=== PATIENT | male | born 1940 | race Caucasian/White ===

== ENCOUNTER 2016-10-18 07:35 | Day surgery (SDC) | payer OTHER, MEDICARE ==
[~2016-10-18] VITALS: Ht 170.2 cm; Wt 59.0 kg
[~2016-10-18 07:35] MED LIST: AMARYL1 MG PO; ATORVASTATIN CA80 MG PO; CARVEDILOL3.125 MG PO; CARVEDILOL6.25 MG PO; CINNAMON BARK500 MG PO; GLUCOPHAGE850 MG PO; HEARTBURN TREAT15 MG PO; LANSOPRAZOLE30 MG PO; LISINOPRIL2.5 MG PO; LISINOPRIL20 MG PO; LO-DOSE ASPIRIN81 M2 PO; METFORMIN HCL500 MG PO
[2016-10-18 08:55] LABS: POINT-OF-CARE METER ID UU13113696
== END 2016-10-18 16:05 | disposition home or self-care (01) ==
LOC: CATH 07:35
PROVIDERS: Internal Medicine Cardiovascular Disease
DX: R94.39 Abnormal result of other cardiovascular function study (principal); I25.10 Atherosclerotic heart disease of native coronary artery without angina pectoris; R55 Syncope and collapse; I10 Essential (primary) hypertension; E78.5 Hyperlipidemia, unspecified; E11.9 Type 2 diabetes mellitus without complications; K21.9 Gastro-esophageal reflux disease without esophagitis; I77.819 Aortic ectasia, unspecified site; F17.210 Nicotine dependence, cigarettes, uncomplicated; Z82.49 Family history of ischemic heart disease and other diseases of the circulatory system; Z85.528 Personal history of other malignant neoplasm of kidney; Z79.84 Long term (current) use of oral hypoglycemic drugs; Z79.82 Long term (current) use of aspirin; Z88.0 Allergy status to penicillin
CPT/HCPCS: 82948; 85347; 93005; C1769; C1887; J1644; J2250; J3010

== ENCOUNTER 2017-12-13 11:19 | Inpatient (IN) | payer OTHER, MEDICARE ==
[~2017-12-13] VITALS: Ht 170.2 cm; Wt 41.4 kg
[2017-12-13 12:54] LABS: HEMATOCRIT 46.8 % (38.0-50.0); HEMOGLOBIN 16.6 G/DL (12.5-16.6); MCH 31.4 PG (29.0-34.0); MCHC 35.5 G/DL (30.0-36.0); MCV 88.6 FL (86-99); PLATELET COUNT 204 K/uL (156-360); RBC DIS.WIDTH-CV 13.8 % (11.8-14.6); RBC DIS.WIDTH-SD 44.9 % (39-53); RED BLOOD COUNT 5.28 M/uL (4.00-5.50); WHITE BLOOD COUNT 13.3 K/uL (4.1-10.2)
[2017-12-13 13:08] LABS: CHLORIDE 96 mEq/L (99-109); POTASSIUM 4.6 mEq/L (3.7-5.4); SODIUM 134 mEq/L (136-147)
[2017-12-13 13:09] LABS: GLUCOSE 153 mg/dL (70-99)
[2017-12-13 13:13] LABS: CREATININE 0.9 mg/dL (0.6-1.3); GFR ESTIMATE (CALCULATED) > 59 mL/min/ (58.99-99999)
[2017-12-13 13:14] LABS: UREA NITROGEN (BUN) 19 mg/dL (9-23)
[2017-12-13 13:28] LABS: PTT 25.3 SEC (25-37)
[2017-12-13 13:47] LABS: PTT 25.8 SEC (25-37)
[2017-12-13] MEDS ORDERED: CARVEDILOL12.5 MG PO (15:25)
[2017-12-13] MEDS ORDERED: VENTOLIN HFA18 GM IH (15:32)
[2017-12-13] MEDS ORDERED: ANORO ELLIPTA1 EACH IH (15:32)
[2017-12-13] MEDS ORDERED: METFORMIN HCL1000 MG PO (15:33)
[2017-12-13] MEDS ORDERED: TYLENOL REGULA325 MG PO (15:33)
[2017-12-13] MEDS ORDERED: HYDROCHLOROTH12.5 M3 PO (15:35)
[2017-12-13] MEDS ORDERED: MELOXICAM7.5 MG PO (15:36)
[2017-12-13] MEDS ORDERED: CHANTIX1 MG PO (15:36)
[2017-12-13] MEDS ORDERED: PREVACID15 MG PO (15:36)
[2017-12-13] MEDS ORDERED: MEN'S MULTI-VI1 EACH PO (15:37)
[2017-12-13] MEDS ORDERED: FISH OIL 1,0001 EAC7 PO (15:38)
[2017-12-13 22:44] VITALS: BP 133/61
[2017-12-14 03:11] LABS: HEMATOCRIT 42.5 % (38.0-50.0); HEMOGLOBIN 15.1 G/DL (12.5-16.6); MCH 31.7 PG (29.0-34.0); MCHC 35.5 G/DL (30.0-36.0); MCV 89.1 FL (86-99); PLATELET COUNT 157 K/uL (156-360); RBC DIS.WIDTH-CV 13.8 % (11.8-14.6); RED BLOOD COUNT 4.77 M/uL (4.00-5.50)
[2017-12-14 03:27] LABS: CHLORIDE 100 mEq/L (99-109); SODIUM 137 mEq/L (136-147)
[2017-12-14 03:28] LABS: GLUCOSE 120 mg/dL (70-99)
[2017-12-14 03:32] LABS: CREATININE 0.8 mg/dL (0.6-1.3); GFR ESTIMATE (CALCULATED) > 59 mL/min/ (58.99-99999)
[2017-12-14 03:55] LABS: UREA NITROGEN (BUN) 28 mg/dL (9-23)
[2017-12-14 04:05] VITALS: BP 121/62
[2017-12-14 07:10] VITALS: BP 158/85
[2017-12-14 10:00] LABS: HEMOGLOBIN A1c (GLYCOHEMOGLOB) 6.9 % (Below 5.7)
[2017-12-14 11:49] VITALS: BP 140/67
[2017-12-14 15:16] VITALS: BP 134/81
[2017-12-14 19:39] VITALS: BP 122/66
[2017-12-14 23:32] VITALS: BP 125/69
[2017-12-15 05:09] VITALS: BP 135/81
[2017-12-15 07:48] VITALS: BP 141/78
[2017-12-15 09:45] LABS: TROP-I INTERPRETATION NEGATIVE; TROPONIN-I < 0.01 ng/mL (0.0-0.30)
[2017-12-15 20:15] VITALS: BP 104/60
[2017-12-15 23:15] VITALS: BP 106/59
[2017-12-16 06:27] LABS: HEMATOCRIT 36.6 % (38.0-50.0); MCHC 33.6 G/DL (30.0-36.0); MCV 92.2 FL (86-99); PLATELET COUNT 148 K/uL (156-360); RBC DIS.WIDTH-CV 14.2 % (11.8-14.6); RBC DIS.WIDTH-SD 48.4 % (39-53); RED BLOOD COUNT 3.97 M/uL (4.00-5.50); WHITE BLOOD COUNT 8.6 K/uL (4.1-10.2)
[2017-12-16 06:30] LABS: HEMOGLOBIN 12.3 G/DL (12.5-16.6)
[2017-12-16 06:33] LABS: TROP-I INTERPRETATION NEGATIVE; TROPONIN-I < 0.01 ng/mL (0.0-0.30)
[2017-12-16 06:53] LABS: CHLORIDE 101 MEQ/L (99-109); CREATININE 0.9 MG/DL (0.6-1.3); GFR ESTIMATE (CALCULATED) > 59 mL/min/ (58.99-99999); GLUCOSE 120 mg/dL (70-99); SODIUM 136 MEQ/L (136-147); UREA NITROGEN (BUN) 16 mg/dL (9-23)
[2017-12-16 08:02] VITALS: BP 107/51
[2017-12-16 11:02] VITALS: BP 124/70
[2017-12-16 16:35] VITALS: BP 106/53
[2017-12-16 21:02] VITALS: BP 118/58
[2017-12-17 00:50] VITALS: BP 131/58
[2017-12-17 05:52] VITALS: BP 128/62
[2017-12-17 07:17] VITALS: BP 100/54
[2017-12-17 12:16] VITALS: BP 127/59
[2017-12-17 15:17] VITALS: BP 156/72
[2017-12-17 20:56] VITALS: BP 138/62
[2017-12-18 00:14] VITALS: BP 103/42
[2017-12-18 05:55] VITALS: BP 149/80
[2017-12-18 07:11] VITALS: BP 140/67
[2017-12-18 11:15] VITALS: BP 137/65
[2017-12-18] MEDS ORDERED: NOVOLOG 10100 UNITS/ SC (15:14)
[2017-12-18] MEDS ORDERED: NICOTINE PATCH1 EAC2 TD (15:15)
[2017-12-18] MEDS ORDERED: ASPIR-LOW81 MG PO (15:15)
[2017-12-18] MEDS ORDERED: ATORVASTATIN CA40 MG PO (15:15)
[2017-12-18] MEDS ORDERED: ENDOCET 5-3251 EACH PO (15:16)
[2017-12-18 15:36] VITALS: BP 138/70
== END 2017-12-18 19:12 | DRG 272 ==
LOC: EME 11:19 → EDOF 20:30 → 3EAST 20:30 → 4EAST 20:30 → CANRESERV 20:31 → ENRESERV 20:31 → 3EAST 21:59 → ENRESERV 12-15 13:12 → 4EAST 12-15 20:13 → ENRESERV 12-16 19:44 → CANRESERV 12-16 20:05 → ENRESERV 12-16 20:05 → ENPENDDIS 12-18 → EDPENDDISTM 12-18 18:30 → 4EAST 12-18 19:12
PROVIDERS: Emergency Medicine; Hospitalist; Internal Medicine; Nurse Practitioner Family; Surgery
DX: I70.202 Unspecified atherosclerosis of native arteries of extremities, left leg (principal); I72.3 Aneurysm of iliac artery; E11.51 Type 2 diabetes mellitus with diabetic peripheral angiopathy without gangrene; I25.10 Atherosclerotic heart disease of native coronary artery without angina pectoris; I10 Essential (primary) hypertension; K21.9 Gastro-esophageal reflux disease without esophagitis; F17.200 Nicotine dependence, unspecified, uncomplicated; Z66 Do not resuscitate; J44.9 Chronic obstructive pulmonary disease, unspecified; I71.4 Abdominal aortic aneurysm, without rupture; E78.5 Hyperlipidemia, unspecified; Z79.84 Long term (current) use of oral hypoglycemic drugs; I99.8 Other disorder of circulatory system
CPT/HCPCS: 71046; 73706; 80048; 82948; 83036; 84484; 85027; 85610; 85730; 86850; 86900; 86901; 93005; 93926; 93971; 94640; 94799; 99281; 99285; C1725; C1769; C1874; C1894; J0690; J1170; J1644; J2250; J2270; J2720; J3010; J7030

== ENCOUNTER 2017-12-29 20:09 | Inpatient (IN) | payer OTHER, MEDICARE ==
[~2017-12-29] VITALS: Ht 170.2 cm; Wt 57.8 kg
[~2017-12-29 20:09] MED LIST changes: +ANORO ELLIPTA1 EACH IH; +ASPIR-LOW81 MG PO; +ATORVASTATIN CA40 MG PO; +CARVEDILOL12.5 MG PO; +CHANTIX1 MG PO; +ENDOCET 5-3251 EACH PO; +FISH OIL 1,0001 EAC7 PO; +HYDROCHLOROTH12.5 M3 PO; +MELOXICAM7.5 MG PO; +MEN'S MULTI-VI1 EACH PO; +METFORMIN HCL1000 MG PO; +NICOTINE PATCH1 EAC2 TD; +NOVOLOG 10100 UNITS/ SC; +PREVACID15 MG PO; +TYLENOL REGULA325 MG PO; +VENTOLIN HFA18 GM IH
[2017-12-29 22:06] LABS: HEMATOCRIT 35.7 % (38.0-50.0); HEMOGLOBIN 12.2 G/DL (12.5-16.6); MCH 31.5 PG (29.0-34.0); MCHC 34.2 G/DL (30.0-36.0); MCV 92.2 FL (86-99); RBC DIS.WIDTH-CV 14.8 % (11.8-14.6); RBC DIS.WIDTH-SD 49.4 % (39-53); RED BLOOD COUNT 3.87 M/uL (4.00-5.50); WHITE BLOOD COUNT 10.3 K/uL (4.1-10.2)
[2017-12-29 22:07] LABS: PLATELET COUNT 254 K/uL (156-360)
[2017-12-29 22:15] LABS: CHLORIDE 102 mEq/L (99-109); SODIUM 139 mEq/L (136-147)
[2017-12-29 22:16] LABS: GLUCOSE 172 mg/dL (70-99)
[2017-12-29 22:20] LABS: CREATININE 0.8 mg/dL (0.6-1.3); GFR ESTIMATE (CALCULATED) > 59 mL/min/ (58.99-99999)
[2017-12-29 22:21] LABS: UREA NITROGEN (BUN) 24 mg/dL (9-23)
[2017-12-29] MEDS ORDERED: NICODERM CQ1 EAC2 TD (23:25)
[2017-12-29] MEDS ORDERED: ADULT ASPIRIN R81 MG PO (23:26)
[2017-12-30] VITALS (7 sets, daily range): BP systolic 108–190; BP diastolic 54–92
[2017-12-30 05:55] LABS: HEMATOCRIT 32.7 % (38.0-50.0); HEMOGLOBIN 11.2 G/DL (12.5-16.6); MCH 31.2 PG (29.0-34.0); MCHC 34.3 G/DL (30.0-36.0); MCV 91.1 FL (86-99); PLATELET COUNT 250 K/uL (156-360); RBC DIS.WIDTH-CV 14.6 % (11.8-14.6); RBC DIS.WIDTH-SD 48.8 % (39-53); RED BLOOD COUNT 3.59 M/uL (4.00-5.50); WHITE BLOOD COUNT 8.8 K/uL (4.1-10.2)
[2017-12-30 06:12] LABS: TROP-I INTERPRETATION NEGATIVE; TROPONIN-I < 0.01 ng/mL (0.0-0.30)
[2017-12-30 07:01] LABS: PTT 42.1 SEC (25-37)
[2017-12-30 12:17] LABS: TROP-I INTERPRETATION NEGATIVE; TROPONIN-I < 0.01 ng/mL (0.0-0.30)
[2017-12-30 18:54] LABS: TROP-I INTERPRETATION NEGATIVE; TROPONIN-I < 0.01 ng/mL (0.0-0.30)
[2017-12-31 00:30] VITALS: BP 132/66
[2017-12-31 04:05] VITALS: BP 120/68
[2017-12-31 06:02] LABS: BASOPHIL (%) 1.5 % (0-1); BASOPHIL COUNT 0.1 K/uL (0-0.1); EOSINOPHIL (%) 3.3 % (0-5); EOSINOPHIL COUNT 0.2 K/uL (0-0.3); HEMATOCRIT 37.4 % (38.0-50.0); HEMOGLOBIN 12.8 G/DL (12.5-16.6); IMMATURE GRANULOCYTE (%) 1.5 % (0.0-0.7); LYMPHOCYTE (%) 18.7 % (15-42); LYMPHOCYTE COUNT 1.4 K/uL (1.0-2.8); MCH 31.4 PG (29.0-34.0); MCHC 34.2 G/DL (30.0-36.0); MCV 91.9 FL (86-99); MONOCYTE (%) 7.9 % (3-12); MONOCYTE COUNT 0.6 K/uL (0-0.8); NEUTROPHIL (%) 67.1 % (45-76); PLATELET COUNT 223 K/uL (156-360); RBC DIS.WIDTH-CV 14.6 % (11.8-14.6); RBC DIS.WIDTH-SD 49.2 % (39-53); RED BLOOD COUNT 4.07 M/uL (4.00-5.50); WHITE BLOOD COUNT 7.4 K/uL (4.1-10.2)
[2017-12-31 06:45] VITALS: BP 133/75
[2017-12-31 06:59] LABS: ALBUMIN 3.6 G/DL (3.2-4.8); ALKALINE PHOSPHATASE 66 IU/L (3-129); ALT (GPT) 13 IU/L (3-49); AST (GOT) 16 IU/L (2-34); CHLORIDE 101 MEQ/L (99-109); CREATININE 0.9 MG/DL (0.6-1.3); GFR ESTIMATE (CALCULATED) > 59 mL/min/ (58.99-99999); POTASSIUM 4.7 MEQ/L (3.7-5.4); SODIUM 138 MEQ/L (136-147); TOTAL BILIRUBIN 0.6 MG/DL (0.0-1.0); TOTAL PROTEIN 5.6 G/DL (6.4-8.3); UREA NITROGEN (BUN) 16 mg/dL (9-23)
[2017-12-31 07:00] LABS: GLUCOSE 99 mg/dL (70-99)
[2017-12-31 15:55] VITALS: BP 136/85
[2018-01-01 00:07] VITALS: BP 120/73
[2018-01-01 06:55] VITALS: BP 119/68
[2018-01-01] MEDS ORDERED: ELIQUIS5 MG PO ×2 (10:44→10:53)
[2018-01-01] MEDS ORDERED: TYLENOL REGULA325 MG PO (10:48)
[2018-01-01] MEDS ORDERED: PERCOCET 5/31 TABLET PO (10:49)
== END 2018-01-01 12:45 | disposition home or self-care (01) | DRG 301 ==
LOC: EME 20:09 → EDOF 23:57 → 5EAST 23:57 → EDOF 12-30 00:24 → 5EAST 12-30 00:24 → ENRESERV 12-30 00:31 → 5EAST 12-30 01:02
PROVIDERS: Emergency Medicine; Hospitalist
DX: I82.412 Acute embolism and thrombosis of left femoral vein (principal); E11.51 Type 2 diabetes mellitus with diabetic peripheral angiopathy without gangrene; I10 Essential (primary) hypertension; J44.9 Chronic obstructive pulmonary disease, unspecified; K21.9 Gastro-esophageal reflux disease without esophagitis; F17.210 Nicotine dependence, cigarettes, uncomplicated; Z85.46 Personal history of malignant neoplasm of prostate; Z79.82 Long term (current) use of aspirin; Z79.84 Long term (current) use of oral hypoglycemic drugs
CPT/HCPCS: 80048; 80053; 82948; 84484; 85025; 85027; 85610; 85730; 93971; 99281; 99285; J1815; J2270